=== PATIENT | male | born 1950 | race African-American/Black ===

== ENCOUNTER 2022-03-27 05:56 | Inpatient (IN) ==
[2022-03-27 06:40] LABS: Basophils # 0.1 10*3/uL (0.0-0.2); Basophils % 0.8 % (0.0-0.8); Eosinophils # 0.4 10*3/uL (0.0-0.87); Eosinophils % 4.6 % (0.00-10.9); Hematocrit 44.2 VOL% (42.0-52.0); Hemoglobin 14.4 GM/DL (14.0-18.0); Immature Granulocytes % 0.4 %; Immature Granulocytes Absolute 0.03 #; Lymphocytes # 1.1 10*3/uL (1.4-4.0); Mean Corpuscular HGB Conc 32.6 GM/DL (32-36); Mean Corpuscular Volume 81.1 FL (87-102); Mean Platelet Volume 12.5 FL (9.6-12.0); Monocytes # 0.8 10*3/uL (0.11-0.8); Monocytes % 10.3 % (1.7-12.7); Neutrophils % 69.9 % (38.7-73.9); Platelet Count 219 T/CUMM (130-400); Red Blood Count 5.45 MC/CUMM (3.8-5.5); Red Cell Distribution Width 16.1 % (9.3-17.3); White Blood Count 7.9 T/CUMM (4-12)
[2022-03-27 06:49] LABS: INR 2.5; Partial Thromboplastin Time 50.7 SECS (23.7-32.9)
[2022-03-27 06:56] LABS: Calcium 8.5 MG/DL (8.5-10.1); Osmolality,Calculated 282.5 MOS/KG (273-304); Potassium 3.5 MMOL/L (3.5-5.1)
[2022-03-27 06:59] LABS: Eosinophils 6 % (0-10); Hypochromia Slight; Lymphocytes 17 % (20-55); Platelet Estimate Adequate; Total Cells Counted 100
[2022-03-27 07:00] LABS: Microcytosis Slight
[2022-03-27] MEDS ORDERED: FUROSEMIDE 40 MG/4 ML VIAL IV STA (07:20)
[2022-03-27] MEDS ORDERED: MAGNESIUM SULF RIDER 4 GM/100 ML PREMIX IV PRN (09:23)
[2022-03-27] MEDS ORDERED: MAGNESIUM SULF RIDER 2 GM/50 ML PREMIX IV PRN (09:23)
[2022-03-27] MEDS ORDERED: hydroCHLOROthiazide 25 MG TABLET PO SCH (09:23)
[2022-03-27] MEDS: TAMSULOSIN 0.4 MG CAPSULE PO SCH ×2 (10:41→20:38)
[2022-03-27] MEDS: ATORVASTATIN 20 MG TABLET PO SCH (10:41)
[2022-03-27] MEDS: DILTIAZEM 60 MG TABLET PO SCH ×2 (10:41→20:38)
[2022-03-27] MEDS: ASPIRIN CHEW 81 MG TABLET PO SCH (10:41)
[2022-03-27] MEDS: SACUBITRIL/VALSARTAN 49-51 MG TABLET PO SCH ×2 (10:41→20:38)
[2022-03-27] MEDS: WARFARIN 5 MG TABLET PO SCH (10:42)
[2022-03-27] MEDS: carvediloL 25 MG TABLET PO SCH ×2 (10:42→20:38)
[2022-03-27] MEDS: glipiZIDE 5 MG TABLET PO SCH (10:43)
[2022-03-27] MEDS: POTASSIUM CHLORIDE 20 MEQ TABLET PO SCH (10:43)
[2022-03-27] MEDS ORDERED: NITROGLYCERIN SL 0.4 MG TABLET SL PRN (15:25)
[2022-03-27] MEDS: INSULIN REGULAR 100 UNIT/ML SUBCUT SCH ×2 (16:46→20:38)
[2022-03-27] MEDS: DAPAGLIFLOZIN 10 MG TABLET PO SCH (16:50)
[2022-03-27] MEDS: FUROSEMIDE 40 MG/4 ML VIAL IV SCH (16:52)
[2022-03-28 04:33] LABS: Basophils # 0.1 10*3/uL (0.0-0.2); Basophils % 0.9 % (0.0-0.8); Eosinophils # 0.4 10*3/uL (0.0-0.87); Eosinophils % 5.2 % (0.00-10.9); Hematocrit 45.1 VOL% (42.0-52.0); Hemoglobin 14.6 GM/DL (14.0-18.0); Immature Granulocytes % 0.4 %; Immature Granulocytes Absolute 0.03 #; Lymphocytes # 1.5 10*3/uL (1.4-4.0); Lymphocytes % 20.6 % (21.2-54.2); Mean Corpuscular HGB Conc 32.4 GM/DL (32-36); Mean Corpuscular Volume 80.4 FL (87-102); Mean Platelet Volume 12.6 FL (9.6-12.0); Monocytes # 0.9 10*3/uL (0.11-0.8); Monocytes % 11.6 % (1.7-12.7); Neutrophils % 61.3 % (38.7-73.9); Platelet Count 239 T/CUMM (130-400); Red Blood Count 5.61 MC/CUMM (3.8-5.5); Red Cell Distribution Width 15.9 % (9.3-17.3); White Blood Count 7.5 T/CUMM (4-12)
[2022-03-28 04:43] LABS: INR 2.8; PT Patient Result 28.3 SECS (10.1-12.1)
[2022-03-28 04:59] LABS: Calcium 9.1 MG/DL (8.5-10.1); Osmolality,Calculated 283.3 MOS/KG (273-304); Potassium 3.4 MMOL/L (3.5-5.1)
[2022-03-28 05:01] LABS: Risk Ratio 3.88; VLDL Cholesterol 20.4 MG/DL
[2022-03-28] MEDS: PANTOPRAZOLE 40 MG TABLET PO SCH (05:26)
[2022-03-28] MEDS: INSULIN REGULAR 100 UNIT/ML SUBCUT SCH ×4 (08:22→21:25)
[2022-03-28] MEDS: ASPIRIN CHEW 81 MG TABLET PO SCH (09:35)
[2022-03-28] MEDS: ATORVASTATIN 20 MG TABLET PO SCH (09:35)
[2022-03-28] MEDS: DAPAGLIFLOZIN 10 MG TABLET PO SCH (09:35)
[2022-03-28] MEDS: POTASSIUM CHLORIDE 20 MEQ TABLET PO SCH (09:35)
[2022-03-28] MEDS: carvediloL 25 MG TABLET PO SCH ×2 (09:35→20:25)
[2022-03-28] MEDS: SPIRONOLACTONE 25 MG TABLET PO SCH (09:35)
[2022-03-28] MEDS: SACUBITRIL/VALSARTAN 49-51 MG TABLET PO SCH ×2 (09:36→20:25)
[2022-03-28] MEDS: CYANOCOBALAMIN 500 MCG TABLET PO SCH (09:36)
[2022-03-28] MEDS: TAMSULOSIN 0.4 MG CAPSULE PO SCH ×2 (09:36→20:25)
[2022-03-28] MEDS: WARFARIN 5 MG TABLET PO SCH (09:37)
[2022-03-28] MEDS: glipiZIDE 5 MG TABLET PO SCH (09:38)
[2022-03-28] MEDS: FUROSEMIDE 40 MG/4 ML VIAL IV SCH ×2 (09:38→16:17)
[2022-03-29 05:45] LABS: Basophils # 0.1 10*3/uL (0.0-0.2); Eosinophils # 0.4 10*3/uL (0.0-0.87); Eosinophils % 5.4 % (0.00-10.9); Hematocrit 47.5 VOL% (42.0-52.0); Hemoglobin 15.7 GM/DL (14.0-18.0); Immature Granulocytes % 0.4 %; Immature Granulocytes Absolute 0.03 #; Lymphocytes # 1.8 10*3/uL (1.4-4.0); Mean Corpuscular HGB Conc 33.1 GM/DL (32-36); Mean Corpuscular Volume 80.2 FL (87-102); Mean Platelet Volume 12.2 FL (9.6-12.0); Monocytes # 0.9 10*3/uL (0.11-0.8); Monocytes % 12.5 % (1.7-12.7); Neutrophils % 55.7 % (38.7-73.9); Platelet Count 242 T/CUMM (130-400); Red Blood Count 5.92 MC/CUMM (3.8-5.5); Red Cell Distribution Width 15.8 % (9.3-17.3); White Blood Count 7.4 T/CUMM (4-12)
[2022-03-29 05:52] LABS: INR 2.3; PT Patient Result 23.9 SECS (10.1-12.1)
[2022-03-29] MEDS: PANTOPRAZOLE 40 MG TABLET PO SCH (05:52)
[2022-03-29 06:02] LABS: Calcium 9.5 MG/DL (8.5-10.1); Osmolality,Calculated 278.7 MOS/KG (273-304); Potassium 3.4 MMOL/L (3.5-5.1)
[2022-03-29] MEDS: INSULIN REGULAR 100 UNIT/ML SUBCUT SCH (07:52)
[2022-03-29 08:15] VITALS: BP 99/60
[2022-03-29] MEDS: TAMSULOSIN 0.4 MG CAPSULE PO SCH (08:53)
[2022-03-29] MEDS: POTASSIUM CHLORIDE 20 MEQ TABLET PO SCH (08:53)
[2022-03-29] MEDS: glipiZIDE 5 MG TABLET PO SCH (08:53)
[2022-03-29] MEDS: ASPIRIN CHEW 81 MG TABLET PO SCH (08:53)
[2022-03-29] MEDS: ATORVASTATIN 20 MG TABLET PO SCH (08:53)
[2022-03-29] MEDS: DAPAGLIFLOZIN 10 MG TABLET PO SCH (08:53)
[2022-03-29] MEDS: carvediloL 25 MG TABLET PO SCH (08:53)
[2022-03-29] MEDS: FUROSEMIDE 40 MG/4 ML VIAL IV SCH (08:53)
[2022-03-29] MEDS: SPIRONOLACTONE 25 MG TABLET PO SCH (08:53)
[2022-03-29] MEDS: SACUBITRIL/VALSARTAN 49-51 MG TABLET PO SCH (08:53)
[2022-03-29] MEDS: CYANOCOBALAMIN 500 MCG TABLET PO SCH (08:54)
[2022-03-29] MEDS ORDERED: WARFARIN 7.5 MG TABLET PO SCH (09:00)
== END 2022-03-29 11:15 | disposition home or self-care (01) | DRG 291 ==
LOC: N.EDINP 05:56 → N.ED 05:56 → N.TELES 09:00
PROVIDERS: ADMIT Internal Medicine Cardiovascular Disease; ATTEND Internal Medicine Cardiovascular Disease